=== PATIENT | male | born 1960 | race Caucasian/White ===

== ENCOUNTER 2017-10-04 10:32 | Emergency (ER) | payer OTHER, MEDICAID, SELFPAY ==
[2017-10-04 10:38] VITALS: BP 162/89; PULSE 97; RESP 15; TEMP 36.6; O2SAT 97; BMI 23.2
--- NOTE | 2017-10-04 10:46 | PC.NURSE ---
heart racing, began this am with anxiety, reports history of same several episodes last 2 weeks with increased stress, NSR on monitor, denies cp/soa/dizziness/weakness/numbness/tingling/edema/nausea/trauma or recent illness
[2017-10-04 11:03] LABS: Add Manual Diff / Slide Review NO; Basophils Percent Auto 0.5 % (0-2); Eosinophils Percent Auto 1.5 % (2-4); Hemoglobin 14.6 g/dL (13.5-17.5); Lymphocytes Percent Auto 36.4 % (25-40); Mean Corpuscular HGB Conc 34.1 % (30-36); Mean Corpuscular Hemoglobin 30.6 PG (26-34); Monocytes Percent Auto 8.5 % (3-14); Neutrophils Absolute Auto 2500 /uL (3000-5900); Neutrophils Percent Auto 53.1 % (50-75); Platelet Count 278 X10^3/uL (150-400); Red Blood Cell Count 4.78 X10^6/uL (4.5-5.9); Red Cell Distribution Width 12.6 % (11.6-14.8); White Blood Cell Count 4.6 X10^3/uL (4.5-11.0)
--- NOTE | 2017-10-04 11:07 | ED_ITS ---
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 Patient states that since then he has had a lot of anxiety about his health, although he has made many positive changes, including becoming completely clean and sober. Patient states he is getting to bed early at night, around 8:30 p.m., and sleeps about 12 hr. He does note that sometimes he does not sleep well, however. Patient states he does not drink caffeine any longer, and has not been taking any stimulants of any other kind. He has no history of cardiac issues that he knows of. He states he is not aware of ever having had any palpitations previously, though when he was taking drugs, he states that perhaps he was not as aware of what was going on with his body. Patient denies chest pain or shortness of breath with the episodes. He states that he feels the palpitations in the lower midline area of his chest and also, in his epigastrium. No abdominal pain. Patient was sent to our emergency department by his nurse practitioner, who was concerned about the feeling of palpitations in the patient's abdomen, and wanted further evaluation for a potential abdominal aortic aneurysm. Patient is not aware of ever having had a diagnosis of the sort previously. He had a CT scan and ultrasound performed in [place] last month he states and was not told of any such issue. MD complaint: palpitations Onset (ago): week(s) (2) Duration: intermittent Severity: mild Context: occurred during rest Arrhythmia history: other Associated symptoms: anxiety Related Data Home Medications Medication Instructions Recorded Confirmed acetaminophen 325 mg PO PRN PRN #0 12/15/16 10/04/17 clobetasol 1 jung TOPICAL Q12HR #0 12/15/16 10/04/17 melatonin 3 mg PO PRN PRN #0 12/15/16 10/04/17 liothyronine 5 mcg tablet 5 mcg PO .COMPLEX tab 10/04/17 10/04/17 Previous Rx's Medication Instructions Recorded amlodipine 10 mg PO QDAY #30 tab 02/14/18 folic acid 1 mg PO QDAY #30 tab 04/12/17 mesalamine [Apriso] 4 cap PO QDAY #120 cap 04/12/17 mirtazapine 15 mg PO QDAY #30 tab 04/12/17 sulfasalazine 2 tab PO TID #180 tab 04/12/17 meclizine 25 mg PO Q6HP PRN #20 tab 05/07/17 Allergies Allergy/AdvReac Type Severity Reaction Status Date / Time bee venom protein (honey bee) Allergy Severe Anaphylaxis Verified 10/04/17 10:38 [BEE VENOM PROTEIN (HONEY BEE)] Review of Systems Review of Systems All systems reviewed & are unremarkable except as noted in HPI and below Constitutional Denies chills, Denies fever(s), Denies lethargy and Denies weakness Eyes Denies change in vision, Denies eye discharge, Denies irritation and Denies loss of vision ENT Ears, Nose, Mouth, and Throat: Denies change in voice, Denies neck pain and Denies sore throat Cardiovascular Denies chest pain, Denies irregular heart rhythm, Denies lightheadedness, Reports palpitations, Denies dyspnea, Denies dyspnea on exertion and Denies orthopnea Respiratory Denies cough, Denies dyspnea, Denies dyspnea on exertion and Denies wheezing Gastrointestinal Gastrointestinal: Denies abdominal pain, Denies change in bowel habits, Denies diarrhea, Denies nausea and Denies vomiting Genitourinary Denies hematuria, Denies flank pain, Denies urinary incontinence and Denies urinary urgency Musculoskeletal Denies neck pain Integumentary/Breasts Denies pruritus, Denies erythema, Denies rash and Denies wounds Neurologic Denies confusion, Denies loss of vision and Denies weakness Psychiatric Reports anxiety, Denies confusion, Denies depression, Denies homicidal ideation and Denies suicidal ideation Endocrine Reports palpitations Hematologic/Lymphatic Denies easy bruising Allergic/Immunologic Denies wheezing PFSH Social History Smoking Status: Former smoker alcohol intake: former Exam Initial Vital Signs Initial Vital Signs: Vital Signs Temperature 97.9 F 10/04/17 10:38 Pulse Rate 97 H 10/04/17 10:38 Respiratory Rate 15 10/04/17 10:38 Blood Pressure 162/89 H 10/04/17 10:38 Pulse Oximetry 97 10/04/17 10:38 Const General: cooperative and well developed Nutritional Appearance: well nourished Orientation: alert, awake, oriented x3 and not confused [facility] Head: normocephalic and atraumatic Ears: external ears normal and TM's normal bilaterally Nose: external nose normal and No nasal discharge Face and sinus: sinuses nontender, face symmetric, no sinus tenderness and No dry mucous membranes Mouth: oral mucosae normal and moist mucous membranes Teeth and gingiva: dentition normal Throat: tonsils normal and uvula midline Eyes General: appearance normal, both eyes and all related structures Eyelids: eyelids normal Conjunctivae: conjunctivae normal Sclera: sclerae normal Pupils: PERRL EOM: EOM intact bilaterally Neck Neck: normal visual inspection, trachea midline, No lymphadenopathy, No midline deformity and No JVD Lymphatic: No lymphedema Chest Chest: normal inspection of the chest Resp Effort & Inspection: normal respiratory effort, able to speak in complete sentences, no respiratory distress and no use of accessory muscles Auscultation: clear to auscultation bilaterally, no rales, no rhonchi and no wheezes Cardio Rate: regular rate Rhythm: regular rhythm Heart Sounds: no click, no gallops, no murmurs and no rubs Pulses: normal peripheral pulses GI Inspection: non-distended Palpation: soft, no hepatosplenomegaly, No guarding, No pulsatile mass (Patient has a normal diameter aortic pulse in his abdomen. Abdomen is scaphoid, and and patient is thin.) and No tender Auscultation: normal bowel sounds Back/Spine/Pelvis Back: No CVA tenderness Cervical Spine: cervical ROM normal and No pain with cervical ROM Thoracic/Lumbar Spine: thoracic and lumbar spine normal to inspection Skin General: no rashes or lesions noted, No jaundice and No petechiae Neuro General: alert, oriented x3, gait normal and no focal motor deficits Speech: speech normal Extrem General: full ROM, no clubbing, cyanosis or edema, no pedal edema and no calf tenderness Psych Appearance: well kempt Mental Status: mental status grossly normal Attitude: cooperative Thought Content: normal and suicidality Judgment: judgment good Course Hospital Course: The patient remained stable throughout his stay in the emergency department. Although he had been sent over concerns by the midlevel provider for possible abdominal aortic aneurysm, I did not find evidence of this, either in his verbal history or on his physical exam. The patient has been anxious and I did feel that this was very likely a cause of his symptoms, particularly since he reported feeling occasional palpitations while at was in the room but the monitor reading was normal. We did discuss that given that this is about the anniversary of his hemorrhagic stroke, which she reports is very frightening experience for him, that it is possible that he is experiencing some anxiety due to this. Orders Ordered: ED Orders 10/04/17 10:56 CBC [Complete Blood Count AUTO DIFF] Stat CMP [Comprehensive Metabolic Panel] Stat Trop I [Troponin I] Stat 10/04/17 10:58 EKG-12 Lead Stat Vital Signs - 8 hr 10/04/17 10:38 Temperature 97.9 F Pulse Rate 97 H Respiratory Rate 15 Blood Pressure 162/89 H Pulse Oximetry 97 MDM - Arrhythmia/Palpitations Differential Diagnosis Differential diagnosis: Likely palpitations, anxiety, sinus tachycardia, artial flutter, ventricular premature beats and supraventricular tachycardia Medical Records Attestation: I reviewed the patient's medical records. Lab Data Attestation: I reviewed the patient's lab results. Lab results narrative: Labs were unremarkable. Result diagrams: 10/04/17 10:12 10/04/17 10:12 Lab Results 10/04/17 10/04/17 Range/Units 10:12 10:12 WBC 4.6 (4.5-11.0) X10^3/uL RBC 4.78 (4.5-5.9) X10^6/uL Hgb 14.6 (13.5-17.5) g/dL Hct 43.0 (41-53) % MCV 90.0 (80-100) fL MCH 30.6 (26-34) PG MCHC 34.1 (30-36) % RDW 12.6 (11.6-14.8) % Plt Count 278 (150-400) X10^3/uL Neut % (Auto) 53.1 (50-75) % Lymph % (Auto) 36.4 (25-40) % [place] % (Auto) 8.5 (3-14) % Eos % (Auto) 1.5 L (2-4) % Baso % (Auto) 0.5 (0-2) % Neut # (Auto) 2500 L (4860-7339) /uL Sodium 143 (137-145) mmol/L Potassium 4.0 (3.4-5.1) mmol/L Chloride 102 (98-107) mmol/L Carbon Dioxide 32 (22-32) mmol/L BUN 16 (9-20) mg/dL Creatinine 0.70 (0.66-1.25) mg/dL Estimated GFR > 60.0 (>60) mL/min BUN/Creatinine Ratio 22.9 H (6-22) Glucose 110 H (70-100) mg/dL Calcium 9.5 (8.4-10.2) mg/dL Total Bilirubin 0.6 (0.2-1.3) mg/dL AST 35 (17-59) IU/L ALT 24 (21-72) IU/L Alkaline Phosphatase 73 (38-126) U/L Troponin I 0.021 (0.01-0.034) ng/mL Total Protein 7.6 (6.3-8.2) g/dL Albumin 4.7 (3.5-5.0) g/dL Globulin 2.9 (1.7-4.1) g/dL Albumin/Globulin Ratio 1.6 (1.0-2.8) ECG Data Attestation: I personally reviewed and interpreted this ECG as follows: Prior ECG tracings: not available for review Interpretation: Rate: 87, NSR PA: [address]: Normal [place]: Normal IVCD (QRS dur 110 ms) Discharge Plan Departure Patient Disposition: Home, Self-Care Clinical Impression: Palpitations, Anxiety Discharge Date/Time: 10/04/17 12:42 Interventions: ED Discharge Assessment Last Done: 10/04/17 12:42 Instructions: DI for Anxiety -- Adult, DI for Palpitations Activity Restrictions/Additional Instructions: Your labs, EKG, and monitor reading look great. There is no sign of an emergent condition causing your symptoms. If you continue to have anxiety, please speak with your primary provider about the best management options for this. Prescriptions: No Action liothyronine [Cytomel] 5 mcg tablet 5 mcg PO .COMPLEX RF: 0 melatonin 3 MG tablet 3 mg PO PRN PRN (Reason: Insomnia) Qty: 0 RF: 0 clobetasol 0.05 % ointment 1 jung Topical Q12HR Qty: 0 RF: 0 acetaminophen 325 MG tablet 325 mg PO PRN PRN (Reason: pain fever) Qty: 0 RF: 0 sulfasalazine 500 MG tablet 2 tab PO TID Qty: 180 RF: 11 amlodipine 10 MG tablet 10 mg PO QDAY Qty: 30 RF: 11 folic acid 1 MG tablet 1 mg PO QDAY Qty: 30 RF: 11 mirtazapine 15 MG tablet 15 mg PO QDAY Qty: 30 RF: 11 mesalamine [Apriso] 0.375 GM capsule,extended release 24hr 4 cap PO QDAY Qty: 120 RF: 11 meclizine 25 MG tablet 25 mg PO Q6HP PRNQty: 20 RF: 0 Referrals: Angeles Pretty ARNP [[employer]] - (Follow-up within the next week.)
[2017-10-04 11:08] LABS: Alanine Aminotransferase 24 IU/L (21-72); Albumin 4.7 g/dL (3.5-5.0); Albumin Globulin Ratio 1.6 (1.0-2.8); Alkaline Phosphatase 73 U/L (38-126); Aspartate Aminotransferase 35 IU/L (17-59); BUN Creatinine Ratio 22.9 (6-22); Bilirubin Total 0.6 mg/dL (0.2-1.3); Blood Urea Nitrogen 16 mg/dL (9-20); Calcium 9.5 mg/dL (8.4-10.2); Carbon Dioxide 32 mmol/L (22-32); Chloride 102 mmol/L (98-107); Estimated Glomerular Filt Rate > 60.0 mL/min (>60); Globulin 2.9 g/dL (1.7-4.1); Glucose 110 mg/dL (70-100); HEMOLYSIS < 15 (0-50); Sodium 143 mmol/L (137-145); Total Protein 7.6 g/dL (6.3-8.2)
[2017-10-04 11:21] LABS: Troponin I 0.021 ng/mL (0.01-0.034)
[2017-10-04 11:30] VITALS: BP 138/87; PULSE 73; RESP 11; O2SAT 95
[2017-10-04 12:42] VITALS: BP 132/75; PULSE 71; RESP 18; O2SAT 96
== END 2017-10-04 12:42 | disposition home or self-care (01) ==
PROVIDERS: Emergency Provider Emergency Medicine; PCP Physician Assistant
DX: R00.2 Palpitations (principal); F41.9 Anxiety disorder, unspecified
CPT/HCPCS: 36591; 80053; 84484; 85025; 93005; 93010; 93041; 99283; 99284

== ENCOUNTER → 2018-03-13 12:57 | Outpatient (CLI) | payer OTHER, MEDICAID, SELFPAY ==
[2018-03-13 13:47] LABS: Alanine Aminotransferase 23 IU/L (21-72); Albumin 4.8 g/dL (3.5-5.0); Albumin Globulin Ratio 1.4 (1.0-2.8); Alkaline Phosphatase 78 U/L (38-126); Aspartate Aminotransferase 29 IU/L (17-59); BUN Creatinine Ratio 17.1 (6-22); Bilirubin Total 0.5 mg/dL (0.2-1.3); Blood Urea Nitrogen 12 mg/dL (9-20); Calcium 9.5 mg/dL (8.4-10.2); Carbon Dioxide 30 mmol/L (22-32); Chloride 102 mmol/L (98-107); Estimated Glomerular Filt Rate > 60.0 mL/min (>60); Globulin 3.4 g/dL (1.7-4.1); Glucose 104 mg/dL (70-100); HEMOLYSIS < 15 (0-50); Potassium 3.8 mmol/L (3.4-5.1); Sodium 141 mmol/L (137-145); Total Protein 8.2 g/dL (6.3-8.2)
[2018-03-13 13:48] LABS: C-Reactive Protein Quant < 0.5 mg/dL (<1.0)
[2018-03-13 14:47] LABS: Add Manual Diff / Slide Review NO; Basophils Absolute Auto 100 /uL (0-100); Basophils Percent Auto 0.9 % (0-2); Eosinophils Absolute Auto 100 /uL (0-450); Eosinophils Percent Auto 1.6 % (2-4); Hematocrit 43.8 % (41-53); Hemoglobin 14.4 g/dL (13.5-17.5); Lymphocytes Absolute Auto 2100 /uL (1100-4500); Lymphocytes Percent Auto 34.9 % (25-40); Mean Corpuscular Hemoglobin 30.3 PG (26-34); Mean Corpuscular Volume 91.9 fL (80-100); Monocytes Absolute Auto 500 /uL (0-900); Monocytes Percent Auto 8.8 % (3-14); Neutrophils Absolute Auto 3200 /uL (1500-7000); Neutrophils Percent Auto 53.8 % (50-75); Platelet Count 323 X10^3/uL (150-400); Red Blood Cell Count 4.77 X10^6/uL (4.5-5.9); Red Cell Distribution Width 12.7 % (11.6-14.8); White Blood Cell Count 5.9 X10^3/uL (4.5-11.0)
[2018-03-15 16:08] LABS: Alpha Fetoprotein 2.2 ng/mL (< 6.1)
== END ==
PROVIDERS: Visit Provider Nurse Practitioner Family
DX: B18.2 Chronic viral hepatitis C (principal)
CPT/HCPCS: 36415; 80053; 82105; 85025; 86140

== ENCOUNTER → 2018-06-27 08:28 | Outpatient (CLI) | payer OTHER, MEDICAID, SELFPAY ==
[2018-06-27 09:37] LABS: Vitamin D 25 Hydroxy (D3) 57.1 ng/mL (30.0-100.0)
[2018-06-27 09:50] LABS: TSH w/ Reflex to FT4 1.25 uIU/mL (0.47-4.68)
== END ==
PROVIDERS: PCP Student in an Organized Health Care Education/Training Program; Visit Provider Student in an Organized Health Care Education/Training Program
DX: E03.9 Hypothyroidism, unspecified (principal); E55.9 Vitamin D deficiency, unspecified
CPT/HCPCS: 36415; 82306; 84443

== ENCOUNTER 2019-06-26 11:52 | Emergency (ER) | payer OTHER, MEDICAID, SELFPAY ==
[2019-06-26 11:59] VITALS: BP 194/95; PULSE 97; RESP 18; TEMP 36.4; O2SAT 95
[2019-06-26] MEDS: TET,DIPH,PERTUSS(ACELL),VAC/PF 0.5 ML SYRINGE IM (12:03)
[2019-06-26] MEDS: BACITRACIN OINT 0.9 GM PCKT 1 APPLIC TOP (12:06)
--- NOTE | 2019-06-26 12:19 | ED.UPPEXIN ---
HPI - Extremity Injury (Upper) <ANUP GoodwinP - Last Filed: 06/26/19 12:32> General Chief Complaint: Extremity Injury, Upper Stated Complaint: left hand 3rd digit cut today Time Seen by Provider: 06/26/19 11:57 Source: patient Mode of arrival: Ambulatory Limitations: no limitations History of Present Illness HPI narrative: This is a 59-year-old gentleman, former smoker, who presents to ED with chief complain of non dominant left hand 3rd distal phalanx laceration from a paring knife when he tried to come to [facility] about an hour ago. Patient reports he had quite a lot of bleeding from affected site. Patient is unsure of last tetanus immunization. Patient reports chronic history of hemorrhagic CVA, hep C, hypertension. Patient reports he is able to move his fingers without difficulty and intact sensation. Related Data Home Medications Medication Instructions Recorded Confirmed clobetasol 1 jung TOPICAL Q12HR #0 12/15/16 10/04/17 Previous Rx's Medication Instructions Recorded amlodipine 10 mg tablet 10 mg PO QDAY #30 tab 06/12/18 folic acid 1 mg tablet 1 mg PO QDAY #30 tab 06/12/18 mesalamine 0.375 gram 1.5 gram PO QDAY #120 cap 06/12/18 capsule,extended release 24 hr mirtazapine 15 mg tablet 15 mg PO QDAY #30 tab 06/12/18 Allergies Allergy/AdvReac Type Severity Reaction Status Date / Time bee venom protein (honey bee) Allergy Severe Anaphylaxis Verified 06/12/18 13:05 [BEE VENOM PROTEIN (HONEY BEE)] Review of Systems <ANUP GoodwinP - Last Filed: 06/26/19 12:32> Review of Systems Narrative: General: Denies fever, chills, fatigue, malaise, sweats. HEENT: Denies sinus pain, ear pain, sore throat, difficulty swallowing, dizziness. Respiratory: Denies dyspnea, cough, wheezing, hemoptysis, sputum. Cardiovascular: Denies chest pain, palpitations, orthopnea, edema. Gastrointestinal: Denies nausea, vomiting, abdominal pain, diarrhea, constipation, melena. : Denies dysuria, frequency, incontinence, hematuria, urinary retention. Musculoskeletal: See HPI Skin: See HPI Neurologic: History of hemorrhagic CVA affected left side of his body. Psychiatric: No concerning psychosocial issues. 12-point review of systems is negative except for those stated above. Patient History <ALEXANDRA Goodwin - Last Filed: 06/26/19 12:32> Medical History Adenomyomatosis of gallbladder (Chronic) Bipolar disorder (Chronic) Chronic back pain (Chronic) Colitis (Chronic) Colon polyps (Chronic) Coronary artery disease (Chronic) Depression (Chronic) Foot pain (Chronic) Gallbladder polyp (Chronic) Headache (Chronic) Hepatitis C (Chronic) History of CVA (cerebrovascular accident) (Chronic) Hypertension (Chronic) Migraines (Chronic) Psoriasis (Chronic) Scoliosis (Chronic) Stroke (Resolved) Vision disorder (Chronic) Surgical History Anesthesia (Resolved) History of hernia surgery (Resolved ~1989) History of neck surgery (Resolved ~2006) Family History Father Cancer Grandfather Cancer Social History Smoking Status: Former smoker alcohol intake: former Smoking Status: Former smoker alcohol intake frequency: 0-2 drinks per day Substance Use Type: does not use Exam <ALEXANDRA Goodwin - Last Filed: 06/26/19 12:32> Narrative Exam Narrative: General appearance: well developed, well nourished, in no acute distress. Head: normocephalic, atraumatic, no scalp lesions, non-tender. ENT: Hearing grossly intact. Nose without bleeding, purulent discharge. Mucous membrane moist, no mucosal lesion. Throat without erythema, tonsillar hypertrophy or exudate. Uvula in midline, airway patent. Neck/Thyroid: neck supple, full range of motion, no visible masses or meningeal signs. No JVD, non-tender without lymphadenopathy. Skin: A flap appearing superficial laceration in left 3rd distal digit with wound edges approximating without active bleeding. Heart: no clubbing, no cyanosis, no edema. S1 and S2 normal. Lungs: Breathing even and unlabored. No stridor. No accessory muscles used. Able to speak in full sentences. Chest: normal shape and expansion. Abdomen: non-obese, non-distended. Neurologic: alert and oriented. Cognitive exam intact on informal exam. Psych: good eye contact, normal affect. Initial Vital Signs Initial Vital Signs: Vital Signs Temperature 97.6 F 06/26/19 11:59 Pulse Rate 97 H 06/26/19 11:59 Respiratory Rate 18 06/26/19 11:59 Blood Pressure 194/95 H 06/26/19 11:59 Pulse Oximetry 95 06/26/19 11:59 <Hardy Baxter MD - Last Filed: 06/27/19 07:43> Initial Vital Signs Initial Vital Signs: Vital Signs Temperature 97.6 F 06/26/19 11:59 Pulse Rate 97 H 06/26/19 11:59 Respiratory Rate 18 06/26/19 11:59 Blood Pressure 194/95 H 06/26/19 11:59 Pulse Oximetry 95 06/26/19 11:59 Procedures <ALEXANDRA Goodwin - Last Filed: 06/26/19 12:32> Laceration Repair Laceration 1: Site: hand (Third finger) Side (If applicable): left Size (cm): 1 Description: flap Pre-repair: wound explored and irrigated extensively Skin layer closed with: steri-strips Orthopedic Splinting/Casting Injury #1: Side: left Upper Extremity Injury Location: finger Upper Extremity Immobilizer: aluminum form splint (finger) Post splinting neuro exam: intact Post splinting vascular exam: intact Placed by: Nursing Scores <ALEXANDRA Goodwin - Last Filed: 06/26/19 12:32> GCS [place] coma scale eye opening: Spontaneous [place] coma scale verbal response: Orientated [place] coma scale motor response: Obey commands Truman coma scale total score: 15 Course <ALEXANDRA Goodwin - Last Filed: 06/26/19 12:32> Orders Ordered: Discontinued Medications Bacitracin (Bacitracin) 1 applic TOP NOW ONE Stop: 06/26/19 11:58 Last Admin: 06/26/19 12:06 Dose: 1 applic Documented by: NORMA Diphtheria/Tetanus/Acell Pertussis (Adacel) 0.5 ml IM .ONCE ONE Stop: 06/26/19 11:58 Last Admin: 06/26/19 12:03 Dose: 0.5 ml Documented by: NORMA Lidocaine/Sodium Bicarbonate (Buffered Lidocaine 10 Ml Syr) 10 ml INJ NOW ONE Stop: 06/26/19 11:58 Last Admin: 06/26/19 12:31 Dose: Not Given Documented by: JEOVANNY Vital Signs Vital signs: Vital Signs - 8 hr 06/26/19 11:59 Temperature 97.6 F Pulse Rate 97 H Respiratory Rate 18 Blood Pressure 194/95 H Pulse Oximetry 95 <Hardy Baxter MD - Last Filed: 06/27/19 07:43> Orders Ordered: Discontinued Medications Bacitracin (Bacitracin) 1 applic TOP NOW ONE Stop: 06/26/19 11:58 Last Admin: 06/26/19 12:06 Dose: 1 applic Documented by: NORMA Diphtheria/Tetanus/Acell Pertussis (Adacel) 0.5 ml IM .ONCE ONE Stop: 06/26/19 11:58 Last Admin: 06/26/19 12:03 Dose: 0.5 ml Documented by: NORMA Lidocaine/Sodium Bicarbonate (Buffered Lidocaine 10 Ml Syr) 10 ml INJ NOW ONE Stop: 06/26/19 11:58 Last Admin: 06/26/19 12:31 Dose: Not Given Documented by: JEOVANNY Vital Signs Vital signs: Vital Signs - 8 hr 06/26/19 11:59 Temperature 97.6 F Pulse Rate 97 H Respiratory Rate 18 Blood Pressure 194/95 H Pulse Oximetry 95 [facility] - Extremity Injury (Upper) <ALEXANDRA Goodwin - Last Filed: 06/26/19 12:32> Differential Diagnosis Differential diagnosis: Likely other (Laceration of finger) Medical Records Attestation: I reviewed the patient's medical records. MDM Narrative Medical decision making narrative: Please see procedural note. Laceration has been repaired with Steri-Strips and affected finger applied on finger aluminum splint to protect laceration and wound approximation. Tdap has been updated today. Return precautions were discussed with the patient and patient verbalized understanding and agreement with treatment plan. Patient was hypertensive in ED without chest pain, breathing difficulty, dizziness but reports he was anxious with his laceration and injury. Patient advised to take his high blood pressure medications as directed and follow up with his primary care physician. Discharge Plan Departure Patient Disposition: Home Clinical Impression: Skin wound closed with sterile strip Finger laceration Qualifiers: Encounter type: initial encounter Finger: middle finger Damage to nail status: without damage Foreign body presence: without foreign body Laterality: left Qualified Code(s): S61.213A - Laceration without foreign body of left middle finger without damage to nail, initial encounter Discharge Date/Time: 06/26/19 12:53 Instructions: DI for Laceration Repair Steri-Strips, DI for Laceration Repair -- Finger Activity Restrictions/Additional Instructions: You have been diagnosed with [superficial laceration on non dominant hand left side distal 3rd finger repaired with Steri-Strips]. What to do: *Take your medications as directed. You can take [id number] Tylenol and or Motrin as needed for discomfort. Please keep wound clean and dry all times. After 24 hours, you can open the dressing and clean with soap and water and pat dry. Do not remove Steri-Strips until wound has healed. Please avoid putting pressure on affected finger to protect laceration repair with Steri-Strips. Do not soak affected finger in water or bathtub until laceration heals. Steri-Strips will be removed on his own in 7-10 days. If Steri-Strips removes to soon, he can reinforce wound with Steri-Strips that has been provided to you in ED. *Follow up with your primary care provider in 2-3 days, call for an appointment. You were hypertensive in ED which needs to be followed up with her primary care physician and please take your blood pressure medication as directed. Let them know you were seen in the ED and that we asked you to be seen in follow up. *Return to ED if you have any new, worsening, or concerning symptoms, such as [increasing redness, pain, swelling, warmth or purulent discharge since this is signs/symptoms for infection. Please return to ED with any other acute concerns]. Prescriptions: No Action clobetasol 0.05 % ointment 1 jung Topical Q12HR Qty: 0 RF: 0 mirtazapine 15 mg tablet 15 mg PO QDAY Qty: 30 RF: 11 Apriso 0.375 gram capsule,extended release 24hr 1.5 gram PO QDAY Qty: 120 RF: 11 folic acid 1 mg tablet 1 mg PO QDAY Qty: 30 RF: 11 amlodipine 10 mg tablet 10 mg PO QDAY Qty: 30 RF: 11 Referrals: Eliu Segura MD [Primary Care Provider] -
[2019-06-26 12:34] VITALS: BP 164/98; PULSE 92; RESP 20; O2SAT 95
[2019-06-26 12:43] VITALS: BP 164/98; PULSE 92; RESP 20; O2SAT 95
== END 2019-06-26 12:53 | disposition home or self-care (01) ==
PROVIDERS: Emergency Provider Nurse Practitioner Family; PCP Student in an Organized Health Care Education/Training Program
DX: S61.213A Laceration without foreign body of left middle finger without damage to nail, initial encounter (principal); W26.0XXA Contact with knife, initial encounter; Z23 Encounter for immunization
CPT/HCPCS: 90471; 99283; 90715

== ENCOUNTER 2020-07-04 12:24 | Emergency (ER) | payer OTHER, MEDICAID, SELFPAY ==
[2020-07-04 12:31] VITALS: BP 159/89; PULSE 99; RESP 18; TEMP 36.4; O2SAT 95; BMI 25.0
--- NOTE | 2020-07-04 12:35 | ED.WOUNDLAC ---
HPI - Wound/Laceration General Chief Complaint: Wound/Laceration Stated Complaint: Lt Hand Laceration Time Seen by Provider: 07/04/20 12:35 Source: patient Mode of arrival: Ambulatory Limitations: no limitations History of Present Illness HPI narrative: Patient is a 60-year-old male with history of hemorrhagic stroke left-sided weakness presenting with left hand laceration. He says he was wearing gloves grinding old bolts off the boat when he cut dorsal side of his left hand. No numbness tingling or weakness. He is able move all fingers infected can see the tendon. Extremity Location: Left: hand Body four view annotation: 1. 5 cm laceration and tendon seen in its entirety no laceration Related Data Previous Rx's Medication Instructions Recorded mesalamine 0.375 gram 1.5 gram PO QDAY #120 cap 06/12/18 capsule,extended release 24 hr epinephrine 0.3 mg/0.3 mL 0.3 mg IM ONCE #1 each 07/05/19 injection, auto-injector clobetasol 0.05 % topical ointment 1 applic TOPICAL DAILY #30 g 03/10/20 folic acid 1 mg tablet 1 mg PO QDAY #30 tab 04/13/20 amlodipine 10 mg tablet 10 mg PO QDAY #90 tab 05/10/20 mirtazapine 15 mg tablet 15 mg PO QDAY #90 tab 05/10/20 Allergies Allergy/AdvReac Type Severity Reaction Status Date / Time bee venom protein (honey bee) Allergy Severe Anaphylaxis Verified 05/06/20 16:09 [BEE VENOM PROTEIN (HONEY BEE)] Review of Systems Review of Systems Narrative: GENERAL: Denies chills,fever HEENT: Denies throat pain RESPIRATORY: Denies dyspnea, cough, wheezing CARDIOVASCULAR: Denies chest pain, palpitations GASTROINTESTINAL: Denies nausea, vomiting MUSCULOSKELETAL: Denies extremity pain, injury SKIN: See HPI NEUROLOGIC: Denies weakness, dizziness, headache, numbness 8 point review of systems is negative except for those stated above and HPI Patient History Medical History (Updated 07/04/20 @ 13:05 by Alexa Sales DO) Adenomyomatosis of gallbladder Bipolar disorder Chronic back pain Colitis Colon polyps Coronary artery disease Depression Foot pain Headache Hepatitis C History of CVA (cerebrovascular accident) Hypertension Migraines Psoriasis Scoliosis Stroke Vision disorder Surgical History Anesthesia History of hernia surgery (~1989) History of neck surgery (~2006) Family History Father Cancer Grandfather Cancer Social History Smoking Status: Former smoker alcohol intake: former Smoking Status: Former smoker alcohol intake frequency: 0-2 drinks per day Substance Use Type: marijuana Exam Initial Vital Signs Initial Vital Signs: Vital Signs Temperature 97.6 F 07/04/20 12:31 Pulse Rate 99 H 07/04/20 12:31 Respiratory Rate 18 07/04/20 12:31 Blood Pressure 159/89 H 07/04/20 12:31 Pulse Oximetry 95 07/04/20 12:31 GENERAL: Well-appearing, well-nourished and in no acute distress. CARDIOVASCULAR: peripheral pulses in tact, cap refill <2 sec RESPIRATORY: No respiratory distress, speaks in full sentences without difficulty EXTREMITIES: Normal range of motion, no clubbing or edema. Neurovascularly intact Full flexion extension of all fingers NEUROLOGICAL: Cranial nerves II through XII grossly intact. Normal gait and speech. SKIN: 5 cm laceration left hand dorsal side Procedures Laceration Repair Laceration 1: Site: hand Side (If applicable): left Size (cm): 5 Description: linear Depth: simple, single layer Local Anesthetic: lidocaine 1% Amount of anesthesia used (mL): 4 Pre-repair: wound explored, irrigated extensively and deep structures intact Skin layer closed with: nylon Size (cm): 4-0 Number of sutures: 7 Course Orders Ordered: Discontinued Medications Bacitracin (Bacitracin Oint 0.9 Gm Pckt) 3 applic TOP NOW ONE Stop: 07/04/20 12:59 Last Admin: 07/04/20 12:59 Dose: 3 applic Documented by: KENDRA Diphtheria/Tetanus/Acell Pertussis (Tet,Diph,Pertuss(Acell),Vac/Pf 0.5 Ml Syringe) 0.5 ml IM .ONCE ONE Stop: 07/04/20 12:55 Last Admin: 07/04/20 12:55 Dose: 0.5 ml Documented by: KENDRA Lidocaine HCl (Lidocaine 1% (Pf)) 4 ml SUBCUT NOW ONE Stop: 07/04/20 12:39 Last Admin: 07/04/20 12:50 Dose: 4 ml Documented by: KENDRA Vital Signs Vital signs: Vital Signs - 8 hr 07/04/20 12:31 07/04/20 13:03 Temperature 97.6 F Pulse Rate 99 H 93 H Respiratory Rate 18 16 Blood Pressure 159/89 H 156/86 H Pulse Oximetry 95 99 Discharge Plan Departure Patient Disposition: Home Clinical Impression: Laceration of hand, left Qualifiers: Encounter type: initial encounter Foreign body presence: without foreign body Qualified Code(s): S61.412A - Laceration without foreign body of left hand, initial encounter Instructions: DI for Laceration Repair Activity Restrictions/Additional Instructions: 1. Have your suture removed in 5-7 days, you may go to walk-in clinic, return to the ER or call your primary care physician. 2. No soaking in water including dishes, bathtubs, Lakes, swimming pools etc 3. Signs of infection include, but not limited to, increased redness, increased swelling, increased pain, fever and purulent drainage, if the symptoms should arise, you may need an antibiotic and you should have a reevaluation either by your primary care provider or by the emergency department. Prescriptions: No Action epinephrine [EpiPen 2-[place]] 0.3 mg/0.3 mL auto-injector 0.3 mg IM ONCE Qty: 1 RF: 11 clobetasol 0.05 % ointment 1 applic Topical DAILY Qty: 30 RF: 11 folic acid 1 mg tablet 1 mg PO QDAY Qty: 30 RF: 2 Apriso 0.375 gram capsule,extended release 24hr 1.5 gram PO QDAY Qty: 120 RF: 11 amlodipine 10 mg tablet 10 mg PO QDAY Qty: 90 RF: 3 mirtazapine 15 mg tablet 15 mg PO QDAY Qty: 90 RF: 3 Referrals: Eliu Segura MD [Primary Care Provider] -
[2020-07-04] MEDS: LIDOCAINE 1% (PF) 4 ML SUBCUT (12:50)
[2020-07-04] MEDS: TET,DIPH,PERTUSS(ACELL),VAC/PF 0.5 ML SYRINGE IM (12:55)
[2020-07-04] MEDS: BACITRACIN OINT 0.9 GM PCKT 3 APPLIC TOP (12:59)
[2020-07-04 13:03] VITALS: BP 156/86; PULSE 93; RESP 16; O2SAT 99
== END 2020-07-04 13:10 | disposition home or self-care (01) ==
PROVIDERS: Emergency Provider Emergency Medicine; PCP Student in an Organized Health Care Education/Training Program
DX: S61.412A Laceration without foreign body of left hand, initial encounter (principal); W26.8XXA Contact with other sharp object(s), not elsewhere classified, initial encounter; Z23 Encounter for immunization
CPT/HCPCS: 12002; 90471; 99283; 90715

== ENCOUNTER 2020-07-11 09:38 | Emergency (ER) | payer OTHER, MEDICAID, SELFPAY ==
[2020-07-11 09:40] VITALS: BP 162/80; PULSE 90; RESP 18; TEMP 37.1; O2SAT 96
[2020-07-11 09:43] VITALS: BP 162/80; PULSE 93; RESP 12; TEMP 36.6; O2SAT 99
--- NOTE | 2020-07-11 09:45 | ED_ITS ---
HPI - Recheck/Abnormal Lab/Rx General Chief Complaint: Recheck/Abnormal Lab/Rx Stated Complaint: NEEDS STITCHES OUT. TOLD TO RETURN Time Seen by Provider: 07/11/20 09:41 Source: patient Mode of arrival: Ambulatory Limitations: no limitations History of Present Illness HPI narrative: 60-year-old maleFormer smoker with history of hypertension returns as he was told by the emergency provider on a visit 1 week ago for suture removal. He suffered a laceration on the dorsum of his hand from a power tool and had a deep wound that was repaired in our department 7 days ago. He has had no drainage, ongoing bleeding or other complaints in the interim and is here purely for suture removal. Onset/Timin Initial visit (ago): day(s) Returns today for: staple/stitch removal Symptoms since prior visit: no new symptoms Context: planned re-check Related Data Previous Rx's Medication Instructions Recorded mesalamine 0.375 gram 1.5 gram PO QDAY #120 cap 06/12/18 capsule,extended release 24 hr epinephrine 0.3 mg/0.3 mL 0.3 mg IM ONCE #1 each 07/05/19 injection, auto-injector clobetasol 0.05 % topical ointment 1 applic TOPICAL DAILY #30 g 03/10/20 folic acid 1 mg tablet 1 mg PO QDAY #30 tab 04/13/20 mirtazapine 15 mg tablet 15 mg PO QDAY #90 tab 05/10/20 amlodipine 10 mg tablet 10 mg PO QDAY #90 tab 07/07/20 Allergies Allergy/AdvReac Type Severity Reaction Status Date / Time bee venom protein (honey bee) Allergy Severe Anaphylaxis Verified 05/06/20 16:09 [BEE VENOM PROTEIN (HONEY BEE)] Review of Systems Constitutional Constitutional: Denies chills and Denies fever(s) Integumentary/Breasts Skin/Breast: Denies erythema, Denies skin pain, Denies sores and Reports wounds Patient History Medical History Adenomyomatosis of gallbladder Bipolar disorder Chronic back pain Colitis Colon polyps Coronary artery disease Depression Foot pain Headache Hepatitis C History of CVA (cerebrovascular accident) Hypertension Migraines Psoriasis Scoliosis Stroke Vision disorder Surgical History Anesthesia History of hernia surgery (~1989) History of neck surgery (~2006) Family History Father Cancer Grandfather Cancer Social History Smoking Status: Former smoker alcohol intake: former Smoking Status: Former smoker alcohol intake frequency: 0-2 drinks per day Substance Use Type: marijuana Exam Narrative Exam Narrative: AOx3 PERRLA EXT: Sutures clean, dry and intact, no surrounding erythema, drainage or dehiscence. Nursing has removed sutures, there is a very small amount of separation, not true dehiscence and Steri-Strips placed Initial Vital Signs Initial Vital Signs: Vital Signs Temperature 97.8 F 07/11/20 09:43 Pulse Rate 93 H 07/11/20 09:43 Respiratory Rate 12 07/11/20 09:43 Blood Pressure 162/80 H 07/11/20 09:43 Pulse Oximetry 99 07/11/20 09:43 Course Vital Signs Vital signs: Vital Signs - 8 hr 07/11/20 09:43 Temperature 97.8 F Pulse Rate 93 H Respiratory Rate 12 Blood Pressure 162/80 H Pulse Oximetry 99 MDM - Recheck/Abnormal Lab/Rx MDM Narrative Medical decision making narrative: Appropriate healing of hand wound, sutures removed, Steri-Strips put in place, return precautions given Discharge Plan Departure Patient Disposition: Home Clinical Impression: Encounter for removal of sutures Laceration of hand, left Qualifiers: Encounter type: subsequent encounter Foreign body presence: without foreign body Qualified Code(s): S61.412D - Laceration without foreign body of left hand, subsequent encounter Instructions: DI for Suture Removal Activity Restrictions/Additional Instructions: There is no evidence of an emergent or life threatening illness at this time, but follow up with your doctor in 1-2 days is recommended nonetheless to [facility] to rule out serious underlying causes of your symptoms. Please call the office for an appointment. Please return to the Emergency Department for any worsening or persistent symptoms. Please take medications as directed. Prescriptions: No Action epinephrine [EpiPen 2-[place]] 0.3 mg/0.3 mL auto-injector 0.3 mg IM ONCE Qty: 1 RF: 11 clobetasol 0.05 % ointment 1 applic Topical DAILY Qty: 30 RF: 11 folic acid 1 mg tablet 1 mg PO QDAY Qty: 30 RF: 2 amlodipine 10 mg tablet 10 mg PO QDAY Qty: 90 RF: 3 Apriso 0.375 gram capsule,extended release 24hr 1.5 gram PO QDAY Qty: 120 RF: 11 mirtazapine 15 mg tablet 15 mg PO QDAY Qty: 90 RF: 3 Referrals: Eliu Segura MD [Primary Care Provider] -
== END 2020-07-11 09:58 | disposition home or self-care (01) ==
PROVIDERS: Emergency Provider Emergency Medicine; PCP Student in an Organized Health Care Education/Training Program
DX: Z48.02 Encounter for removal of sutures (principal); S61.412D Laceration without foreign body of left hand, subsequent encounter
CPT/HCPCS: 99281

== ENCOUNTER 2020-08-11 12:57 | Emergency (ER) | payer OTHER, MEDICAID, SELFPAY ==
[2020-08-11 13:00] VITALS: BP 156/82; PULSE 104; RESP 14; TEMP 36.8; O2SAT 98; BMI 25.0
== END 2020-08-11 14:38 | disposition left against medical advice (07) ==
PROVIDERS: Emergency Provider Emergency Medicine; PCP Student in an Organized Health Care Education/Training Program
CPT/HCPCS: 99281

== ENCOUNTER → 2020-09-22 14:38 | Outpatient (CLI) | payer OTHER, MEDICAID, SELFPAY ==
[2020-09-22 15:45] LABS: Prostate Specific Antigen Scrn 0.433 ng/mL (0.1-4.0)
== END ==
PROVIDERS: PCP Student in an Organized Health Care Education/Training Program; Referring Provider Student in an Organized Health Care Education/Training Program; Visit Provider Student in an Organized Health Care Education/Training Program
DX: Z12.5 Encounter for screening for malignant neoplasm of prostate (principal)
CPT/HCPCS: 36415; G0103

== ENCOUNTER 2020-10-11 17:44 | Emergency (ER) | payer OTHER, MEDICAID, SELFPAY ==
[2020-10-11 17:53] VITALS: BP 146/72; PULSE 86; RESP 18; TEMP 37.7; O2SAT 97; BMI 24.3
--- NOTE | 2020-10-11 18:06 | ED_ITS ---
HPI - Nausea/Vomiting/Diarrhea General Chief complaint: Nausea/Vomiting/Diarrhea Stated complaint: FEEL DEHYDRATED Time Seen by Provider: 10/11/20 17:47 Source: patient Mode of arrival: Ambulatory Limitations: no limitations History of Present Illness HPI Narrative: Patient is a 60-year-old male history of ulcerative colitis, CVA, hepatitis C presenting today with nausea for 1 week. He says that he is been drinking Gatorade and Pedialyte and water but feels like he is dehydrated. He feels dizzy and lightheaded he stands up. He urinated earlier today day out feels like that has decreased. He overall is unable to eat his makes him feel so nauseous. He denies any abdominal pain. He has no chest pain shortness of breath. He received his 1st vaccination for COVID and is due for the 2nd 1 in a couple of weeks. Related Data Previous Rx's Medication Instructions Recorded mesalamine 0.375 gram 1.5 gram PO QDAY #120 cap 06/12/18 capsule,extended release 24 hr (Apriso) epinephrine 0.3 mg/0.3 mL 0.3 mg IM ONCE #1 each 07/05/19 injection, auto-injector (EpiPen 2-[place]) clobetasol 0.05 % topical ointment 1 applic TOPICAL DAILY #30 g 03/10/20 amlodipine 10 mg tablet 10 mg PO QDAY #90 tab 07/07/20 folic acid 1 mg tablet 1 mg PO QDAY #30 tab 08/05/20 mirtazapine 15 mg tablet 15 mg PO QDAY #90 tab 08/05/20 ondansetron 4 mg disintegrating 4 mg PO Q8H PRN #10 tab 10/11/20 tablet Allergies Allergy/AdvReac Type Severity Reaction Status Date / Time bee venom protein (honey bee) Allergy Severe Anaphylaxis Verified 09/22/20 14:10 [BEE VENOM PROTEIN (HONEY BEE)] Review of Systems Review of Systems Narrative: GENERAL: Denies chills, fatigue, malaise, fever, sweats, travel HEENT: Denies sinus pain, ear pain, sore throat, difficulty swallowing, neck pain RESPIRATORY: Denies dyspnea, cough, wheezing, hemoptysis, sputum. CARDIOVASCULAR: Denies chest pain, palpitations, orthopnea, edema GASTROINTESTINAL: Nausea : Denies dysuria, frequency, incontinence, hematuria, urinary retention, flank pain. MUSCULOSKELETAL: Denies weakness, joint pain, or bony pain SKIN: No rash, no erythema, no pruritus NEUROLOGIC: Denies weakness, headache, numbness, change in speech, confusion PSYCHIATRIC: No concerning psychosocial issues. 12 point review of systems is negative except for those stated above and HPI Patient History Medical History (Updated 10/11/20 @ 20:20 by Alexa Sales DO) Adenomyomatosis of gallbladder Bipolar disorder Chronic back pain Colitis Colon polyps Coronary artery disease Foot pain Headache Hepatitis C Hypertension Migraines Psoriasis Scoliosis Stroke Vision disorder Surgical History Anesthesia History of hernia surgery (~1989) History of neck surgery (~2006) Family History Father Cancer Grandfather Cancer Social History Smoking Status: Former smoker alcohol intake: former Smoking Status: Former smoker alcohol intake frequency: holidays/special occasions only Substance Use Type: marijuana Exam Initial Vital Signs Initial Vital Signs: Vital Signs Temperature 99.8 F H 10/11/20 17:53 Pulse Rate 86 10/11/20 17:53 Respiratory Rate 18 10/11/20 17:53 Blood Pressure 146/72 H 10/11/20 17:53 Pulse Oximetry 97 10/11/20 17:53 GENERAL: Alert well-appearing 60-year-old male and in no acute distress. HEENT: Head atraumatic,EOMI, pupils reactive, face symmetric, moist mucous membranes CARDIOVASCULAR: Regular rate and rhythm without murmurs, rubs or gallops. RESPIRATORY: Breath sounds equal bilaterally, no wheezes rales or rhonchi. ABDOMEN: Soft, nontender. Normoactive bowel sounds all 4 quadrants. No guarding or rebound. : No CVA tenderness EXTREMITIES: Normal range of motion, no clubbing or edema. Neurovascularly intact NEUROLOGICAL: Alert and oriented x4.Normal gait and speech. SKIN: Warm, dry, no laceration, no petechiae, no rashes or lesions. Course Orders Ordered: Discontinued Medications Sodium Chloride (Normal Saline 0.9%) 1,000 mls @ 1,000 mls/hr IV BOLUS ONE Stop: 10/11/20 19:12 Last Infusion: 10/11/20 19:52 Dose: 0 mls/hr Documented by: Admin: 10/11/20 18:37 Dose: 1,000 mls/hr Documented by: NORMA Ondansetron HCl (Ondansetron 4 Mg/2 Ml Inj) 4 mg IV NOW ONE Stop: 10/11/20 18:49 Last Admin: 10/11/20 19:04 Dose: 4 mg Documented by: NORMA Ondansetron HCl (Ondansetron 4 Mg Odt Prepack) 1 bottle MISC SEEINSTR ONE Stop: 10/11/20 20:25 Last Admin: 10/11/20 20:27 Dose: 1 bottle Documented by: NORMA Vital Signs Vital signs: Vital Signs - 8 hr 10/11/20 20:31 Pulse Rate 74 Respiratory Rate 24 Blood Pressure 117/68 Pulse Oximetry 95 MDM - Nausea/Vomiting/Diarrhea Lab Data Result diagrams: 10/11/20 17:55 10/11/20 17:55 Labs: Lab Results 10/11/20 10/11/20 10/11/20 Range/Units 17:55 17:55 17:55 WBC 6.2 (4.5-11.0) X10^3/uL RBC 4.36 L (4.5-5.9) X10^6/uL Hgb 12.8 L (13.5-17.5) g/dL Hct 36.1 L (41-53) % MCV 82.9 (80-100) fL MCH 29.3 (26-34) PG MCHC 35.3 (30-36) % RDW 12.6 (11.6-14.8) % Plt Count 221 (150-400) X10^3/uL Neut % (Auto) 66.0 (50-75) % Lymph % (Auto) 25.2 (25-40) % [place] % (Auto) 8.1 (3-14) % Eos % (Auto) 0.3 L (2-4) % Baso % (Auto) 0.4 (0-2) % Neut # (Auto) 4100 (8497-8429) /uL Lymph # (Auto) 1600 (0816-9383) /uL [place] # (Auto) 500 (0-900) /uL Eos # (Auto) 0 (0-450) /uL Baso # (Auto) 0 (0-100) /uL Sodium 132 L (137-145) mmol/L Potassium 3.7 (3.4-5.1) mmol/L Chloride 97 L (98-107) mmol/L Carbon Dioxide 30 (22-32) mmol/L BUN 13 (9-20) mg/dL Creatinine 0.58 L (0.66-1.25) mg/dL Estimated GFR > 60.0 (>60) mL/min BUN/Creatinine Ratio 22.4 H (6-22) Glucose 116 H (80-110) mg/dL Calcium 8.4 (8.4-10.2) mg/dL Total Bilirubin 0.6 (0.2-1.3) mg/dL AST 40 (17-59) IU/L ALT 21 (<50) IU/L Alkaline Phosphatase 52 (38-126) U/L Total Creatine Kinase 35 L (55-170) U/L CK-MB (CK-2) TNP CK-MB (CK-2) Rel Index TNP Troponin I < 0.012 (0.01-0.034) ng/mL Total Protein 6.7 (6.3-8.2) g/dL Albumin 3.6 (3.5-5.0) g/dL Globulin 3.1 (1.7-4.1) g/dL Albumin/Globulin Ratio 1.2 (1.0-2.8) Lipase 245 (23-300) U/L Urine Color Urine Appearance Urine pH (4.5-8.0) Ur Specific [place] (1.000-1.035) Urine Protein (Negative) Urine Glucose (UA) (Negative) g/dL Urine Ketones (NEGATIVE) Urine Occult Blood (Negative) Urine Nitrate (Negative) Urine Bilirubin (NEGATIVE) Urine Urobilinogen (0.2) E.U./dL Ur Leukocyte Esterase (NEGATIVE) Urine RBC (0-5/HPF) Urine WBC (0-5/HPF) Ur Squamous Epith Cells (0-5/HPF) Urine Bacteria (None) Ur Culture Indicated? 10/11/20 Range/Units 18:36 WBC (4.5-11.0) X10^3/uL RBC (4.5-5.9) X10^6/uL Hgb (13.5-17.5) g/dL Hct (41-53) % MCV (80-100) fL MCH (26-34) PG MCHC (30-36) % RDW (11.6-14.8) % Plt Count (150-400) X10^3/uL Neut % (Auto) (50-75) % Lymph % (Auto) (25-40) % [place] % (Auto) (3-14) % Eos % (Auto) (2-4) % Baso % (Auto) (0-2) % Neut # (Auto) (9046-0018) /uL Lymph # (Auto) (8051-0554) /uL [place] # (Auto) (0-900) /uL Eos # (Auto) (0-450) /uL Baso # (Auto) (0-100) /uL Sodium (137-145) mmol/L Potassium (3.4-5.1) mmol/L Chloride (98-107) mmol/L Carbon Dioxide (22-32) mmol/L BUN (9-20) mg/dL Creatinine (0.66-1.25) mg/dL Estimated GFR (>60) mL/min BUN/Creatinine Ratio (6-22) Glucose (80-110) mg/dL Calcium (8.4-10.2) mg/dL Total Bilirubin (0.2-1.3) mg/dL AST (17-59) IU/L ALT (<50) IU/L Alkaline Phosphatase (38-126) U/L Total Creatine Kinase (55-170) U/L CK-MB (CK-2) CK-MB (CK-2) Rel Index Troponin I (0.01-0.034) ng/mL Total Protein (6.3-8.2) g/dL Albumin (3.5-5.0) g/dL Globulin (1.7-4.1) g/dL Albumin/Globulin Ratio (1.0-2.8) Lipase (23-300) U/L Urine Color Yellow Urine Appearance Clear Urine pH 6.0 (4.5-8.0) Ur Specific [place] 1.010 (1.000-1.035) Urine Protein Trace H (Negative) Urine Glucose (UA) Trace H (Negative) g/dL Urine Ketones Trace H (NEGATIVE) Urine Occult Blood Negative (Negative) Urine Nitrate Negative (Negative) Urine Bilirubin Negative (NEGATIVE) Urine Urobilinogen 0.2 (0.2) E.U./dL Ur Leukocyte Esterase Negative (NEGATIVE) Urine RBC None seen (0-5/HPF) Urine WBC 1-5/hpf (0-5/HPF) Ur Squamous Epith Cells 0-1 /hpf (0-5/HPF) Urine Bacteria Occasional (0-1) (None) Ur Culture Indicated? Cult not indicated ECG Data Interpretation: Normal sinus rhythm rate 68 RI interval 148 QRS [address] changes or T-wave inversions similar to previous EKG MDM Narrative Medical decision making narrative: The patient is clearly not dehydrated he is drinking Gatorade in Pedialyte he has no electrolyte abnormalities. He is given 1 L of fluid no overall is feeling better. Orthostatics were negative. He does have this persistent ongoing nausea which Zofran seemed to help for. He has absolutely no abdominal pain or no chest pain. Although with his coronary artery disease history I did add troponin which is also negative. At this time patient will be discharged with Zofran and outpatient follow-up. Discharge Plan Departure Patient Disposition: Home Clinical Impression: Nausea Instructions: DI for Nausea -- Adult Activity Restrictions/Additional Instructions: *You have been diagnosed with nausea *What to do: At this time blood work is overall reassuring no sign of infection no sign of dehydration. He may increase diet as tolerated hopefully the anti nausea medication helps *Continue to take medications as directed Zofran 4 mg every 8 hours if needed for nausea or vomiting--> SENT TOO MAX *Follow up with your primary care provider in 2-3 days *Return to ER if you should have abdominal pain persistent vomiting, fever, chest or any new, worsening or concerning symptoms Prescriptions: New ondansetron 4 mg tablet,disintegrating 4 mg PO Q8H PRN (Reason: nausea and vomiting) Qty: 10 RF: 0 No Action epinephrine [EpiPen 2-[place]] 0.3 mg/0.3 mL auto-injector 0.3 mg IM ONCE Qty: 1 RF: 11 clobetasol 0.05 % ointment 1 applic Topical DAILY Qty: 30 RF: 11 amlodipine 10 mg tablet 10 mg PO QDAY Qty: 90 RF: 3 folic acid 1 mg tablet 1 mg PO QDAY Qty: 30 RF: 1 mirtazapine 15 mg tablet 15 mg PO QDAY Qty: 90 RF: 3 Apriso 0.375 gram capsule,extended release 24hr 1.5 gram PO QDAY Qty: 120 RF: 11 Referrals: Eliu Segura MD [Primary Care Provider] -
--- NOTE | 2020-10-11 18:06 | PC.NURSE ---
patient states that he lives in a trailer and has been hot for the last week battling with nausea and has had a couple of episodes of diarrhea. He states that he feels like he did in the passed when he had to come to the ER and have a few units of fluids then he feels better.
[2020-10-11 18:24] LABS: Basophils Absolute Auto 0 /uL (0-100); Eosinophils Absolute Auto 0 /uL (0-450)
[2020-10-11 18:30] VITALS: BP 123/60; BP 126/60; BP 126/63; PULSE 66; PULSE 71; PULSE 76
[2020-10-11 18:34] LABS: Alanine Aminotransferase 21 IU/L (<50); Albumin 3.6 g/dL (3.5-5.0); Albumin Globulin Ratio 1.2 (1.0-2.8); Alkaline Phosphatase 52 U/L (38-126); Aspartate Aminotransferase 40 IU/L (17-59); BUN Creatinine Ratio 22.4 (6-22); Bilirubin Total 0.6 mg/dL (0.2-1.3); Blood Urea Nitrogen 13 mg/dL (9-20); Calcium 8.4 mg/dL (8.4-10.2); Carbon Dioxide 30 mmol/L (22-32); Chloride 97 mmol/L (98-107); Estimated Glomerular Filt Rate > 60.0 mL/min (>60); Globulin 3.1 g/dL (1.7-4.1); Glucose 116 mg/dL (80-110); HEMOLYSIS < 15 (0-50); Lipase 245 U/L (23-300); Potassium 3.7 mmol/L (3.4-5.1); Sodium 132 mmol/L (137-145); Total Protein 6.7 g/dL (6.3-8.2)
[2020-10-11] MEDS: SODIUM CHLORIDE 0.9% 1,000 ML 1000 ML IV (18:37)
[2020-10-11 18:38] LABS: Add Manual Diff / Slide Review NO; Basophils Percent Auto 0.4 % (0-2); Eosinophils Percent Auto 0.3 % (2-4); Hematocrit 36.1 % (41-53); Hemoglobin 12.8 g/dL (13.5-17.5); Lymphocytes Absolute Auto 1600 /uL (1100-4500); Lymphocytes Percent Auto 25.2 % (25-40); Mean Corpuscular HGB Conc 35.3 % (30-36); Mean Corpuscular Hemoglobin 29.3 PG (26-34); Mean Corpuscular Volume 82.9 fL (80-100); Monocytes Absolute Auto 500 /uL (0-900); Monocytes Percent Auto 8.1 % (3-14); Neutrophils Absolute Auto 4100 /uL (1500-7000); Platelet Count 221 X10^3/uL (150-400); Red Blood Cell Count 4.36 X10^6/uL (4.5-5.9); Red Cell Distribution Width 12.6 % (11.6-14.8); White Blood Cell Count 6.2 X10^3/uL (4.5-11.0)
[2020-10-11] MEDS: ONDANSETRON 4 MG/2 ML INJ IV (19:04)
[2020-10-11 19:11] LABS: RBC Urine None Seen (0-5/HPF)
[2020-10-11 19:13] LABS: Appearance Urine UA CLEAR; Bilirubin Urine UA NEGATIVE (NEGATIVE); Color Urine UA YELLOW; Glucose Urine UA TRACE g/dL (Negative); Ketones Urine UA TRACE (NEGATIVE); Leukocyte Esterase Urine UA NEGATIVE (NEGATIVE); Nitrite Urine UA NEGATIVE (Negative); Occult Blood Urine UA NEGATIVE (Negative); Protein Urine UA TRACE (Negative); Urobilinogen Urine UA 0.2 E.U./dL (0.2)
[2020-10-11 19:21] LABS: Bacteria Urine Occasional (0-1); WBC Urine 1-5/HPF (0-5/HPF)
[2020-10-11 19:22] LABS: Culture Indicated Urine Cult Not Indicated; Squamous Epithelial Cell Urine 0-1 /HPF (0-5/HPF)
[2020-10-11 19:56] LABS: Creatine Kinase 35 U/L (55-170)
[2020-10-11 20:09] LABS: Troponin I < 0.012 ng/mL (0.01-0.034)
[2020-10-11] MEDS: ONDANSETRON 4 MG ODT PREPACK 1 BOTTLE MISC (20:27)
[2020-10-11 20:31] VITALS: BP 117/68; PULSE 74; RESP 24; O2SAT 95
== END 2020-10-11 20:32 | disposition home or self-care (01) ==
PROVIDERS: Emergency Provider Emergency Medicine; PCP Student in an Organized Health Care Education/Training Program
DX: R11.0 Nausea (principal); I25.10 Atherosclerotic heart disease of native coronary artery without angina pectoris; I10 Essential (primary) hypertension; Z87.891 Personal history of nicotine dependence
CPT/HCPCS: 80053; 81001; 82550; 83690; 84484; 85025; 93005; 93010; 96361; 96374; 99284; J2405

== ENCOUNTER 2020-10-15 17:29 | Emergency (ER) | payer OTHER, MEDICAID, SELFPAY ==
[2020-10-15 17:33] VITALS: BP 141/67; PULSE 76; RESP 18; TEMP 37.2; O2SAT 97; BMI 24.7
--- NOTE | 2020-10-15 18:52 | ED.ABDPAIN ---
HPI - Abdominal Pain General Chief Complaint: Abdominal Pain Stated Complaint: upset stomach, black stool after laxative Time Seen by Provider: 10/15/20 18:52 Mode of arrival: Ambulatory Limitations: no limitations History of Present Illness HPI narrative: Patient is a 60-year-old male history of ulcerative colitis, hepatitis-C, stroke presenting with persistent ongoing nausea and 2 episodes of black tarry stool. He said he did not want to take Zofran because constipation. This today he had 2 large black bowel movements after taking Pepto-Bismol. He said there was some bright red blood as well. He is having some abdominal discomfort. He denies any vomiting. He has no chest pain or shortness of breath. Related Data Previous Rx's Medication Instructions Recorded mesalamine 0.375 gram 1.5 gram PO QDAY #120 cap 06/12/18 capsule,extended release 24 hr (Apriso) epinephrine 0.3 mg/0.3 mL 0.3 mg IM ONCE #1 each 07/05/19 injection, auto-injector (ThumbAdPen 2-[place]) clobetasol 0.05 % topical ointment 1 applic TOPICAL DAILY #30 g 03/10/20 amlodipine 10 mg tablet 10 mg PO QDAY #90 tab 07/07/20 folic acid 1 mg tablet 1 mg PO QDAY #30 tab 08/05/20 mirtazapine 15 mg tablet 15 mg PO QDAY #90 tab 08/05/20 ondansetron 4 mg disintegrating 4 mg PO Q8H PRN #10 tab 10/11/20 tablet Allergies Allergy/AdvReac Type Severity Reaction Status Date / Time bee venom protein (honey bee) Allergy Severe Anaphylaxis Verified 09/22/20 14:10 [BEE VENOM PROTEIN (HONEY BEE)] Review of Systems Review of Systems Narrative: GENERAL: Denies chills, fatigue, malaise, fever, sweats, travel HEENT: Denies sinus pain, ear pain, sore throat, difficulty swallowing, neck pain RESPIRATORY: Denies dyspnea, cough, wheezing, hemoptysis, sputum. CARDIOVASCULAR: Denies chest pain, palpitations, orthopnea, edema GASTROINTESTINAL: See HPI : Denies dysuria, frequency, incontinence, hematuria, urinary retention, flank pain. MUSCULOSKELETAL: Denies weakness, joint pain, or bony pain SKIN: No rash, no erythema, no pruritus NEUROLOGIC: Denies weakness, dizziness, headache, numbness, change in speech, confusion PSYCHIATRIC: No concerning psychosocial issues. 12 point review of systems is negative except for those stated above and HPI Patient History Medical History (Updated 10/16/20 @ 03:22 by Alexa Sales DO) Adenomyomatosis of gallbladder Bipolar disorder Chronic back pain Colitis Colon polyps Coronary artery disease Foot pain Headache Hepatitis C Hypertension Migraines Psoriasis Scoliosis Stroke Vision disorder Surgical History Anesthesia History of hernia surgery (~1989) History of neck surgery (~2006) Family History Father Cancer Grandfather Cancer Social History Smoking Status: Former smoker alcohol intake: former Smoking Status: Former smoker alcohol intake frequency: holidays/special occasions only Substance Use Type: marijuana Exam Initial Vital Signs Initial Vital Signs: Vital Signs Temperature 99.0 F 10/15/20 17:33 Pulse Rate 76 10/15/20 17:33 Respiratory Rate 18 10/15/20 17:33 Blood Pressure 141/67 H 10/15/20 17:33 Pulse Oximetry 97 10/15/20 17:33 GENERAL: Alert 60-year-old male and in [no acute] distress. HEENT: Head atraumatic,EOMI, pupils reactive, face symmetric, [moist] mucous membranes CARDIOVASCULAR: Regular rate and rhythm without murmurs, rubs or gallops. RESPIRATORY: Breath sounds equal bilaterally, no wheezes rales or rhonchi. ABDOMEN: Soft, mild abdominal discomfort periumbilically no guarding no rebound no distention RECTAL: Guaiac negative no gross is blood hemorrhoid present, no stool on exam EXTREMITIES: Normal range of motion, no clubbing or edema. Neurovascularly intact NEUROLOGICAL: Alert and oriented x4.Normal gait and speech. Cranial nerves II through XII grossly intact. SKIN: Warm, dry, no laceration, no petechiae, no rashes or lesions. Course Orders Ordered: ED Orders 10/15/20 18:53 CT abdomen pelvis w con Stat 10/15/20 19:47 Comprehensive Metabolic Panel Stat Lipase Stat 10/15/20 20:30 Complete Blood Count AUTO DIFF Stat 10/15/20 20:32 COVID19 -Nasal swab/Pre-Proc Stat Discontinued Medications Lorazepam (Lorazepam 2 Mg/Ml Inj) 0.5 mg IV NOW ONE Stop: 10/15/20 19:21 Last Admin: 10/15/20 19:39 Dose: 0.5 mg Documented by: HARRIET Vital Signs Vital signs: Vital Signs - 8 hr 10/15/20 23:00 Pulse Rate 72 Respiratory Rate 18 Blood Pressure 141/67 H Pulse Oximetry 95 MDM - Abdominal Pain Lab Data Result diagrams: 10/15/20 20:30 10/15/20 19:47 Labs: Lab Results 10/15/20 10/15/20 10/15/20 Range/Units 19:47 20:30 20:32 WBC 6.6 (4.5-11.0) X10^3/uL RBC 3.86 L (4.5-5.9) X10^6/uL Hgb 11.7 L (13.5-17.5) g/dL Hct 33.4 L (41-53) % MCV 86.6 D (80-100) fL MCH 30.3 (26-34) PG MCHC 35.0 (30-36) % RDW 12.6 (11.6-14.8) % Plt Count 430 H (150-400) X10^3/uL Neut % (Auto) 72.2 (50-75) % Lymph % (Auto) 15.7 L (25-40) % Creek % (Auto) 8.4 (3-14) % Eos % (Auto) 1.3 L (2-4) % Baso % (Auto) 2.4 H (0-2) % Neut # (Auto) 4700 (9498-4583) /uL Lymph # (Auto) 1000 L (9931-0017) /uL Creek # (Auto) 600 (0-900) /uL Eos # (Auto) 100 (0-450) /uL Baso # (Auto) 200 H (0-100) /uL Sodium 137 (137-145) mmol/L Potassium 3.6 (3.4-5.1) mmol/L Chloride 104 (98-107) mmol/L Carbon Dioxide 28 (22-32) mmol/L BUN 4 L (9-20) mg/dL Creatinine 0.51 L (0.66-1.25) mg/dL Estimated GFR > 60.0 (>60) mL/min BUN/Creatinine Ratio 7.8 (6-22) Glucose 101 (80-110) mg/dL Calcium 8.8 (8.4-10.2) mg/dL Total Bilirubin 0.7 (0.2-1.3) mg/dL AST 28 (17-59) IU/L ALT 26 (<50) IU/L Alkaline Phosphatase 58 (38-126) U/L Total Protein 6.8 (6.3-8.2) g/dL Albumin 3.6 (3.5-5.0) g/dL Globulin 3.2 (1.7-4.1) g/dL Albumin/Globulin Ratio 1.1 (1.0-2.8) Lipase 172 (23-300) U/L SARS-CoV-2 (PCR) Negative (Negative) Point of care testing: Urine Dip Bedside Urine Glucose Negative Bedside Urine Bilirubin - Negative Bedside Urine Ketone - Negative Urine Specific [place] 1.010 Bedside Urine Occult Blood - Negative Bedside Urine pH 7.0 Bedside Urine Protein - Negative Bedside Urine Urobilinogen - Negative Bedside Urine Nitrite - Negative Bedside Urine Leukocytes - Negative Esterase Imaging Data CT scan - abdomen/pelvis: Radiologist's Impression: PROCEDURE: CT ABDOMEN PELVIS W CON INDICATIONS: nausea TECHNIQUE: After the administration of oral and intravenous contrast, axial sections were acquired from the lung bases to the pubic symphysis. Coronal and sagittal reformats were performed. For radiation dose reduction, the following was used: automated exposure control, adjustment of mA and/or kV according to patient size. COMPARISON:[facility], CT, ABDOMEN WITH CONTRAST, 04/12/2012, 14:06. FINDINGS: Image quality: Excellent. Lung bases: Patchy peripheral airspace opacities are seen in the visualized lower lungs. The appearance is compatible with COVID-19. Heart size is normal. Solid organs: Liver: The liver has no mass or intrahepatic biliary ductal dilatation. The portal vein and hepatic veins are patent. Biliary: The gallbladder has no gallstones, pericholecystic fluid, gallbladder wall thickening, or surrounding inflammatory change. Pancreas: The pancreas has no mass or ductal dilatation. There is no surrounding inflammation. Spleen: Normal size. There are no masses. Adrenals: No hypertrophy or nodules. Kidneys: No obstructive calculus or hydronephrosis. No solid mass. No cystic mass. Peritoneum and bowel: The distal esophagus and stomach are normal. The small bowel has a normal caliber and appearance. The terminal ileum is normal. The large bowel has a normal caliber and appearance. The appendix is normal. No free fluid or air. Nodes and vessels: No retroperitoneal or mesenteric adenopathy by size criteria. The aorta has atherosclerosis with no aneurysmal dilatation. Miscellaneous: No abdominal wall mass or hernia. PELVIS: Genitourinary: The bladder has no wall thickening or mass. No bladder calcifications. Miscellaneous: No inguinal hernias or adenopathy. Bones: Degenerative changes with no focal abnormality. Multilevel degenerative disc disease is seen at L3-4, L4-5, and L5-S1. No vertebral body compression fractures. IMPRESSION: 1. No acute abdominal or pelvic abnormality. 2. Patchy airspace opacities in the lower lungs. The appearance is compatible with COVID-19. Please correlate with history. No prior imaging is available for comparison, these findings could be chronic. Dictated by: Juwan Roberts M.D. on 10/15/2020 at 20:01 MDM Narrative Medical decision making narrative: Patient initially quite anxious about CT however I did walk with him and show him the machine itself and he thought he could do it. He was given Ativan in addition to that. CT is fortunately negative for any abdominal abnormalities however does mention possible COVID. COVID test is added he is not actually having any symptoms of fever cough or shortness of breath. Fortunately COVID is negative. Blood work is overall reassuring no significant change in hemoglobin and hematocrit. He has not had any episodes of bloody stools in the ED. He does have a history of ulcerative colitis it may be related to that or the Pepto-Bismol that he has been taking. His at this time I discussed with him importance of following up he understands and agrees. Discharge Plan Departure Patient Disposition: Home Clinical Impression: Abdominal pain Instructions: DI for Abdominal Pain-Adult Activity Restrictions/Additional Instructions: *You have been diagnosed with abdominal pain with nausea *What to do: At this time blood work is overall reassuring CT scan does not show any abnormality your COVID test is negative. Pepto-Bismol was likely causing her stools to be black, I recommend that stop taking *Continue to take medications as directed *Follow up with your primary care provider in 2-3 days *Return to ER if you should have increasing abdominal pain, worsening black stools or bright red blood, dizziness, lightheadedness or any new, worsening or concerning symptoms Prescriptions: No Action epinephrine [EpiPen 2-[place]] 0.3 mg/0.3 mL auto-injector 0.3 mg IM ONCE Qty: 1 RF: 11 clobetasol 0.05 % ointment 1 applic Topical DAILY Qty: 30 RF: 11 amlodipine 10 mg tablet 10 mg PO QDAY Qty: 90 RF: 3 folic acid 1 mg tablet 1 mg PO QDAY Qty: 30 RF: 1 mirtazapine 15 mg tablet 15 mg PO QDAY Qty: 90 RF: 3 Apriso 0.375 gram capsule,extended release 24hr 1.5 gram PO QDAY Qty: 120 RF: 11 ondansetron 4 mg tablet,disintegrating 4 mg PO Q8H PRN (Reason: nausea and vomiting) Qty: 10 RF: 0 Referrals: Eliu Segura MD [Primary Care Provider] -
[2020-10-15] MEDS: LORazepam 2 MG/ML INJ 0.5 MG IV (19:39)
--- NOTE | 2020-10-15 19:44 | PC.NURSE ---
after IV was started,labs sent to lab. The lab is unable to locate them. New set of labs needed to be redrawn
--- NOTE | 2020-10-15 20:09 | PC.NURSE ---
blood was hemolyzed. redraw being done
[2020-10-15 20:10] LABS: Alanine Aminotransferase 26 IU/L (<50); Albumin 3.6 g/dL (3.5-5.0); Albumin Globulin Ratio 1.1 (1.0-2.8); Alkaline Phosphatase 58 U/L (38-126); Aspartate Aminotransferase 28 IU/L (17-59); BUN Creatinine Ratio 7.8 (6-22); Bilirubin Total 0.7 mg/dL (0.2-1.3); Blood Urea Nitrogen 4 mg/dL (9-20); Calcium 8.8 mg/dL (8.4-10.2); Carbon Dioxide 28 mmol/L (22-32); Chloride 104 mmol/L (98-107); Estimated Glomerular Filt Rate > 60.0 mL/min (>60); Globulin 3.2 g/dL (1.7-4.1); Glucose 101 mg/dL (80-110); HEMOLYSIS 20 (0-50); Lipase 172 U/L (23-300); Potassium 3.6 mmol/L (3.4-5.1); Sodium 137 mmol/L (137-145); Total Protein 6.8 g/dL (6.3-8.2)
[2020-10-15 20:55] LABS: Add Manual Diff / Slide Review NO; Basophils Absolute Auto 200 /uL (0-100); Basophils Percent Auto 2.4 % (0-2); Eosinophils Absolute Auto 100 /uL (0-450); Eosinophils Percent Auto 1.3 % (2-4); Hematocrit 33.4 % (41-53); Hemoglobin 11.7 g/dL (13.5-17.5); Lymphocytes Absolute Auto 1000 /uL (1100-4500); Lymphocytes Percent Auto 15.7 % (25-40); Mean Corpuscular Hemoglobin 30.3 PG (26-34); Mean Corpuscular Volume 86.6 fL (80-100); Monocytes Absolute Auto 600 /uL (0-900); Monocytes Percent Auto 8.4 % (3-14); Neutrophils Absolute Auto 4700 /uL (1500-7000); Neutrophils Percent Auto 72.2 % (50-75); Platelet Count 430 X10^3/uL (150-400); Red Blood Cell Count 3.86 X10^6/uL (4.5-5.9); Red Cell Distribution Width 12.6 % (11.6-14.8); White Blood Cell Count 6.6 X10^3/uL (4.5-11.0)
[2020-10-15 21:01] LABS: COVID19 -Nasal RAPID Negative (Negative)
[2020-10-15 23:00] VITALS: BP 141/67; PULSE 72; RESP 18; O2SAT 95
== END 2020-10-15 23:00 | disposition home or self-care (01) ==
PROVIDERS: Emergency Provider Emergency Medicine; PCP Student in an Organized Health Care Education/Training Program
DX: R10.9 Unspecified abdominal pain (principal); R11.0 Nausea; Z20.822 Contact with and (suspected) exposure to COVID-19
CPT/HCPCS: 36415; 74177; 80053; 81003; 83690; 85025; 87635; 96374; 99284; 99285; C9803; J2060

== ENCOUNTER → 2023-01-30 11:37 | Outpatient (CLI) | payer OTHER, MEDICAID, SELFPAY ==
[2023-01-30 12:08] LABS: Add Manual Diff / Slide Review NO; Basophils Absolute Auto 100 /uL (0-100); Basophils Percent Auto 0.8 % (0-2); Eosinophils Absolute Auto 100 /uL (0-450); Eosinophils Percent Auto 1.1 % (2-4); Hematocrit 44.1 % (41-53); Hemoglobin 15.6 g/dL (13.5-17.5); Lymphocytes Absolute Auto 1700 /uL (1100-4500); Lymphocytes Percent Auto 27.7 % (25-40); Mean Corpuscular HGB Conc 35.3 % (30-36); Mean Corpuscular Hemoglobin 30.9 PG (26-34); Mean Corpuscular Volume 87.3 fL (80-100); Monocytes Absolute Auto 400 /uL (0-900); Monocytes Percent Auto 6.7 % (3-14); Neutrophils Absolute Auto 3900 /uL (1500-7000); Neutrophils Percent Auto 63.7 % (50-75); Platelet Count 305 X10^3/uL (150-400); Red Blood Cell Count 5.05 X10^6/uL (4.5-5.9); White Blood Cell Count 6.1 X10^3/uL (4.5-11.0)
[2023-01-30 12:24] LABS: Alanine Aminotransferase 15 IU/L (<50); Albumin 4.6 g/dL (3.5-5.0); Albumin Globulin Ratio 1.3 (1.0-2.8); Alkaline Phosphatase 73 U/L (38-126); Aspartate Aminotransferase 25 IU/L (17-59); BUN Creatinine Ratio 13.2 (6-22); Bilirubin Total 0.6 mg/dL (0.2-1.3); Blood Urea Nitrogen 9 mg/dL (9-20); Calcium 9.8 mg/dL (8.4-10.2); Carbon Dioxide 29 mmol/L (22-32); Chloride 101 mmol/L (98-107); Cholesterol 232 mg/dL (140-199); Estimated Glomerular Filt Rate > 60 mL/min (>60); Globulin 3.5 g/dL (1.7-4.1); Glucose 101 mg/dL (80-110); HDL Cholesterol 56 mg/dL (40-60); HEMOLYSIS < 15 (0-50); LDL Cholesterol Calculated 162 mg/dL (<100); Potassium 4.1 mmol/L (3.4-5.1); Sodium 140 mmol/L (137-145); Total Protein 8.1 g/dL (6.3-8.2); Triglycerides 72 mg/dL (35-150)
== END ==
PROVIDERS: PCP Family Medicine; Referring Provider Family Medicine; Visit Provider Family Medicine
DX: L40.9 Psoriasis, unspecified (principal); I10 Essential (primary) hypertension; K51.90 Ulcerative colitis, unspecified, without complications
CPT/HCPCS: 36415; 80053; 80061; 85025

== ENCOUNTER → 2023-03-30 12:21 | Outpatient (CLI) | payer OTHER, MEDICAID, SELFPAY ==
--- NOTE | 2023-03-30 12:23 | DI.ECHO.S_ITS ---
[facility]---------+ [facility] +---------+ : : [address] : : : : [id number] : : : : Phone: [phone] Echocardiogram Report + + :Name: MARY SANCHEZ Study Date: 03/30/2023 Height: 68 in : :[facility] ReadingLocation: Weight: 160 lb : : Gender: Male BSA: 1.9 m2 : :: 1960 Age: 63 yrs BP: 151/98 mmHg: :Reason For Study: Abnormal EKG : :Ordering Physician: LIZA, : :POLINA Performed By: Freddy Wade : :Referring: POLINA DE JESUS : + + Interpretation Summary The ejection fraction is estimated to be 60-65%. There is no significant valvular heart disease. Procedure: A two-dimensional transthoracic echocardiogram with color flow and Doppler was performed. The study quality was technically adequate. There is no prior echocardiogram noted for this patient. The patient had occasional PVCs during the exam. The heart rate ranged between 53-110 bpm during the study. Left Ventricle: The left ventricle is normal in size and wall thickness. The ejection fraction is estimated to be 60-65%. Left ventricular wall motion is normal. Right Ventricle: The right ventricle is normal in size and function. The right ventricular systolic function is normal. Atria: The left atrial size is normal. Right atrial size is normal. Mitral Valve: The mitral valve is normal in structure and function. There is no mitral valve stenosis. There is trace mitral regurgitation. Aortic Valve: The aortic valve is trileaflet. There is no aortic valve stenosis. No aortic regurgitation is present. Tricuspid Valve: The tricuspid valve is normal in structure and function. There is no tricuspid stenosis. No tricuspid regurgitation. Pulmonic Valve: The pulmonic valve is normal in structure and function. There is no pulmonic valvular stenosis. There is no pulmonic valvular regurgitation. Great Vessels: The aortic root is normal size. The dimensions of the ascending aorta are normal. The inferior vena cava appeared normal. Pericardium/ Pleura There is no pericardial effusion. There is no pleural effusion. MMode/2D Measurements & Calculations LVIDd: 5.5 cm LVOT diam: 2.1 cm LVIDs: 4.1 cm Ao root diam: 3.1 cm FS: 26.2 % asc Aorta Diam: 2.7 cm IVSd: 1.00 cm LVPWd: 0.94 cm LV antonio. diameter/BSA (cm/m^2): 3.0 LV sys. diameter/BSA (cm/m^2): 2.2 LA A2 area: 14.5 cm2 RA long axis: 4.4 cm LA A4 area: 16.3 cm2 RA area: 15.1 cm2 LA length (vol): 5.2 cm RA vol: 44.5 ml LA vol: 38.9 ml RA : 23.9 ml/m2 LA vol index: 20.9 ml/m2 IVC diam: 1.4 cm RVD1 (basal): 3.6 cm RVD2 (mid): 3.2 cm Doppler Measurements & Calculations Ao V2 max: 151.7 cm/sec LVOT Max Craig: 110.4 cm/sec Ao V2 mean: 113.0 cm/sec LV V1 max P.9 mmHg Ao max P.2 mmHg LV V1 VTI: 20.3 cm Ao mean P.4 mmHg RAFAEL(I,D): 2.3 cm2 Ao V2 VTI: 29.7 cm RAFAEL(V,D): 2.4 cm2 sev ratio: 0.68 RAFAEL indexed to BSA (cm^2/m^2): 1.2 MV E max craig: 45.1 cm/sec PA pr(Accel): 15.6 mmHg MV A max craig: 65.2 cm/sec MV E/A: 0.69 Med Peak E' Craig: 5.5 cm/sec E/E' med: 8.1 Lat Peak E' Craig: 9.3 cm/sec E/E' lat: 4.8 E/e' average: 6.5 MV dec time: 0.35 sec SV(LVOT): 68.3 ml Reading Physician:02:52 PM
== END ==
PROVIDERS: PCP Family Medicine; Referring Provider Family Medicine; Visit Provider Family Medicine
DX: R94.31 Abnormal electrocardiogram [ECG] [EKG] (principal); I10 Essential (primary) hypertension; Z86.73 Personal history of transient ischemic attack (TIA), and cerebral infarction without residual deficits; Z86.79 Personal history of other diseases of the circulatory system; F19.11 Other psychoactive substance abuse, in remission
CPT/HCPCS: 93306